=== PATIENT | female | born 1985 | race Caucasian/White ===

== ENCOUNTER → 2018-02-26 | Outpatient (CLI) | payer SELFPAY ==
[~2018-02-26] MED LIST: IBUP800 PO; Verotin-Gr Cap1 EACH PO
== END ==
LOC: LAB SHORT 11:07 → LAB 11:07
PROVIDERS: Registered Nurse Community Health
DX: Z12.4 Encounter for screening for malignant neoplasm of cervix (principal)
CPT/HCPCS: 87624; G0123